=== PATIENT | female | born 2000 | race Caucasian/White ===

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

== ENCOUNTER 2018-01-05 00:49 | Emergency (ER) | payer OTHER ==
--- NOTE | 2018-01-05 01:38 | PDOC ---
History of Present Illness - General Stated Complaint: LT KNEE INJURY Time Seen by Provider: 01/05/18 01:37 History Source: Patient Exam Limitations: No Limitations - History of Present Illness Initial Comments: 01/05/18 01:40 Best Contact:[phone] PCP:0 Pmhx:PCOS Pshx:0 Allergies:NKDA FH:0 Social Hx: Cigarettes/ 0 Alcohol/ 0 Drugs/0 LMP:12/25/2017 20-year-old female presents to the ER complaining of left lateral knee pain. Pain is described as 7/10 dull nonradiating intermittent discomfort. The pain is exacerbated on weight-bear and alleviated at rest. Patient denies extremity numbness or tingling sensation. Patient reports while playing with her dog this evening, she twisted her left knee. Patient states she noticed her left knee popped out laterally and reduced itself when she stood up. Patient denies head/ neck or back injuries. Patient denies any other complaints. Past History - Past Medical History Allergies/Adverse Reactions: Allergies Allergy/AdvReac Type Severity Reaction Status Date / Time No Known Allergies Allergy Verified 05/12/17 11:32 Home Medications: Ambulatory Orders EPINEPHrine (EPI-PEN 0.3MG) [Epipen 0.3MG -] 0.3 mg IM ASDIR #2 pens 05/11/17 Famotidine [Pepcid] 20 mg PO DAILY #7 tablet 05/11/17 Spironolactone 50 mg PO DAILY 05/11/17 Diphenhydramine [Benadryl -] 50 mg PO Q4HWA 05/12/17 Methylprednisolone [Medrol Dose Deep] 4 mg PO ASDIR 05/12/17 Prednisone See Taper PO DAILY #17 tablet 05/12/17 COPD: No Disorders: Yes (PCOS) - Immunization History Immunization Up to Date: Yes - Suicide/Smoking/Psychosocial Hx Smoking History: Unknown if ever smoked Have you smoked in the past 12 months: No Hx Alcohol Use: No Drug/Substance Use Hx: No Substance Use Type: None Review of Systems - Review of Systems Able to Perform ROS?: Yes Comments:: 01/05/18 01:42 CONSTITUTIONAL: Absent: fever, chills, diaphoresis, generalized weakness, malaise, loss of appetite HEENT: Absent: rhinorrhea, nasal congestion, throat pain, throat swelling, difficulty swallowing, mouth swelling, ear pain, eye pain, visual Changes CARDIOVASCULAR: Absent: chest pain, loss of consciousness, palpitations, irregular heart rate, peripheral edema RESPIRATORY: Absent: cough, shortness of breath, dyspnea with exertion, orthopnea, wheezing, stridor, hemoptysis GASTROINTESTINAL: Absent: abdominal pain, abdominal distension, nausea, vomiting, diarrhea, constipation, melena, hematochezia GENITOURINARY: Absent: dysuria, frequency, urgency, hesitancy, hematuria, flank pain, genital pain MUSCULOSKELETAL: +left knee pain Denies ext numbness/tingling sensation Absent: myalgia, arthralgia, joint swelling SKIN: Absent: rash, itching, pallor Is the patient limited [place] proficient: No *Physical Exam - Physical Exam Comments: 01/05/18 01:43 GENERAL: Well developed, well nourished. Awake and alert. No acute distress. MUSCULOSKELETAL Normal range of motion at all joints. No bony deformities or tenderness. No CVA tenderness. EXTREMITIES: No cyanosis. No clubbing. No edema. No calf tenderness. SKIN: Warm and dry. Normal capillary refill. No rashes. No jaundice. Left knee Decreased range of motion due to pain Slight swelling to the anterolateral region No obvious deformity Unable to perform valrus/valgus, anterior or posterior drawer due to pain Left ankle Full range of motion 2+ DP pulse Negative pain on palpation Negative swelling Left hip Full range of motion Negative pain on palpation Negative obvious deformity ED Treatment Course - RADIOLOGY Radiograph Interpretation: 01/05/18 01:45 XR left knee 2n neg *DC/Admit/Observation/Transfer Diagnosis at time of Disposition: Left knee sprain Qualifiers: Encounter type: initial encounter Involved ligament of knee: lateral collateral ligament Qualified Code(s): S83.422A - Sprain of lateral collateral ligament of left knee, initial encounter - Discharge Dispostion Condition at time of disposition: Stable Decision to Admit order: No - Referrals Referrals: Claribel Borrero MD [Primary Care Provider] - Robert Ribera MD [Staff Physician] - - Patient Instructions Printed Discharge Instructions: DI for Knee Sprain Additional Instructions: Ice; 20 mins on alternating with 20 mins off for 48 hours while awake. Rest Elevate Follow up with your orthopedic surgeon or the one listed on the discharge form. Return to the ER for severe/persistent/worsening symptoms, extremity numbness/ tingling sensation. - Post Discharge Activity Progress Note - Progress Note Progress Note: Patient adamantly refuses a urine test. Patient states she had a sleeve gastrectomy done 5 days ago and there is no way she could be .
[2018-01-05 01:44] VITALS: BP 116/84; PULSE 85; TEMP 97.8; BMI 36.2
--- NOTE | 2018-01-05 01:46 | PDOC ---
Medical Decision Making - Medical Decision Making 01/05/18 01:38 Pt seen by Midlevel Provider under my direct supervision I agree with plan as outlined by Midlevel Provider *DC/Admit/Observation/Transfer Diagnosis at time of Disposition: Left knee sprain - Discharge Dispostion Condition at time of disposition: Stable - Referrals Referrals: Robert Ribera MD [Staff Physician] - Claribel Borrero MD [Primary Care Provider] - - Patient Instructions Printed Discharge Instructions: DI for Knee Sprain Additional Instructions: Ice; 20 mins on alternating with 20 mins off for 48 hours while awake. Rest Elevate Follow up with your orthopedic surgeon or the one listed on the discharge form. Return to the ER for severe/persistent/worsening symptoms, extremity numbness/ tingling sensation. - Post Discharge Activity
== END 2018-01-05 03:22 | disposition home or self-care (01) ==
LOC: JER 00:49
DX: S83.422A Sprain of lateral collateral ligament of left knee, initial encounter (principal); X50.1XXA Overexertion from prolonged static or awkward postures, initial encounter; Y93.K9 Activity, other involving animal care; Y92.038 Other place in apartment as the place of occurrence of the external cause; Y99.8 Other external cause status; Z98.890 Other specified postprocedural states
CPT/HCPCS: 73560-TC-LT-FY; 99281-25

== ENCOUNTER 2018-08-30 02:12 | Emergency (ER) | payer OTHER ==
[2018-08-30 02:37] VITALS: TEMP 98.5; BMI 18.8
[2018-08-30] MEDS ORDERED: METHOCARBAMOL 500 MG TABLET PO ONE (03:29)
[2018-08-30] MEDS ORDERED: METHOCARBAMOL 500 MG TABLET ONE (03:35)
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
[2018-08-30] MEDS ORDERED: IBUPROFEN 600 MG TABLET (FP) PO ONE ×2 (04:09→04:25)
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
[2018-08-30 05:45] VITALS: BP 115/73; PULSE 76
== END 2018-08-30 05:45 | disposition home or self-care (01) ==
LOC: JER 02:12
DX: M54.2 Cervicalgia (principal); M43.6 Torticollis; S13.4XXA Sprain of ligaments of cervical spine, initial encounter; V43.52XA Car driver injured in collision with other type car in traffic accident, initial encounter; Y93.89 Activity, other specified; Y92.410 Unspecified street and highway as the place of occurrence of the external cause; E28.2 Polycystic ovarian syndrome
CPT/HCPCS: 72125-TC; 84703; 99282-25

== ENCOUNTER 2019-04-20 19:55 | Emergency (ER) | payer OTHER ==
[2019-04-20 20:02] VITALS: BP 114/73; PULSE 94; TEMP 98.7; BMI 22.6
--- NOTE | 2019-04-20 20:40 | PDOC ---
History of Present Illness - General Chief Complaint: Eye Problem Stated Complaint: SORE THROAT/FEVER/ACHE Time Seen by Provider: 04/20/19 20:05 - History of Present Illness Initial Comments: 04/20/19 20:39 18-year-old female without comorbidities presents for flulike symptoms x6 days. Past History - Past Medical History Allergies/Adverse Reactions: Allergies Allergy/AdvReac Type Severity Reaction Status Date / Time No Known Allergies Allergy Verified 04/20/19 19:58 Home Medications: Ambulatory Orders EPINEPHrine (EPI-PEN 0.3MG) [Epipen 0.3MG -] 0.3 mg IM ASDIR #2 pens 05/11/17 Famotidine [Pepcid] 20 mg PO DAILY #7 tablet 05/11/17 Spironolactone 50 mg PO DAILY 05/11/17 Diphenhydramine [Benadryl -] 50 mg PO Q4HWA 05/12/17 Methylprednisolone [Medrol Dose Deep] 4 mg PO ASDIR 05/12/17 Prednisone See Taper PO DAILY #17 tablet 05/12/17 Methocarbamol [Robaxin -] 500 mg PO BID PRN #8 tablet 08/30/18 COPD: No Disorders: Yes (PCOS) - Immunization History Immunization Up to Date: Yes - Psycho Social/Smoking Cessation Hx Smoking History: Never smoked Have you smoked in the past 12 months: No Hx Alcohol Use: Yes Drug/Substance Use Hx: No Substance Use Type: None Review of Systems - Review of Systems Constitutional: Yes: Chills, Diaphoresis, Fever, Malaise, Night Sweats HEENTM: Yes: Tearing, Nose Congestion, Throat Pain Respiratory: Yes: Cough *Physical Exam - Vital Signs Last Vital Signs Temp Pulse Resp BP Pulse Ox 98.7 F 94 H 18 114/73 100 04/20/19 19:56 04/20/19 19:56 04/20/19 19:56 04/20/19 19:56 04/20/19 19:56 - Physical Exam 04/20/19 20:39 GENERAL: The patient is awake, alert, and fully oriented, in no acute distress. HEAD: Normal with no signs of trauma. EYES: sclera anicteric, conjunctiva injected on the right normal on the left ENT: Ears normal tympanic membranes normal oropharynx clear uvula midline NECK: Normal range of motion LUNGS: Breath sounds equal, clear to auscultation bilaterally. No wheezes, and no crackles. HEART: S1 and S2 without murmur, rub or gallop. ABDOMEN: Soft, nontender, normoactive bowel sounds. No guarding, no rebound. No masses. EXTREMITIES: Normal range of motion, no edema. No clubbing or cyanosis. No cords, erythema, or tenderness. NEUROLOGICAL: Cranial nerves II through XII grossly intact. PSYCH: Normal mood, normal affect. SKIN: Warm, Dry, normal turgor, no rashes or lesions noted. Medical Decision Making - Medical Decision Making 04/20/19 20:40 Supportive care for viral upper respiratory infection out of the window for Tamiflu Discharge - Discharge Information Problems reviewed: Yes Clinical Impression/Diagnosis: Upper respiratory infection Condition: Stable Disposition: HOME - Admission No - Follow up/Referral Referrals: Maria A Oseguera MD [Staff Physician] - - Patient Discharge Instructions Additional Instructions: Continue with Mucinex Tylenol and Motrin as directed. Return to the emergency room for worsening symptoms. Without fail follow-up with your primary care physician in 2 to 3 days for further evaluation and treatment options. - Post Discharge Activity
== END 2019-04-20 21:00 | disposition home or self-care (01) ==
LOC: JERFT 19:55
DX: J06.9 Acute upper respiratory infection, unspecified (principal); B97.89 Other viral agents as the cause of diseases classified elsewhere
CPT/HCPCS: 99282-25

== ENCOUNTER 2022-01-20 22:05 | Emergency (ER) | payer OTHER ==
[2022-01-20 22:15] VITALS: BP 124/86; PULSE 116; RESP 20; BMI 24.5
[2022-01-20] MEDS ORDERED: ALBUTEROL SO4 HFA INHALER IH ONE ×2 (22:21→22:25)
[2022-01-20] MEDS ORDERED: predniSONE 20 MG TABLET (UD) PO ONE (22:22)
[2022-01-20] MEDS ORDERED: SODIUM CHLORIDE 1,000 ML IV ONE ×2 (22:24→22:25)
[2022-01-20] MEDS ORDERED: ACETAMINOPHEN INJECTION 100 ML IVPB ONE (22:25)
[2022-01-20] MEDS ORDERED: predniSONE 20 MG TABLET (UD) ONE (22:25)
[2022-01-20] MEDS ORDERED: ACETAMINOPHEN 1000 MG/100 ML BAG IVPB ONE (22:25)
[2022-01-20 23:20] VITALS: TEMP 101
== END 2022-01-20 23:32 | disposition home or self-care (01) ==
LOC: FER 22:05
PROC: 3E0333Z Introduction of Anti-inflammatory into Peripheral Vein, Percutaneous Approach (ICD-10-PCS; principal; 2022-01-20)
PROC: 3E0337Z Introduction of Electrolytic and Water Balance Substance into Peripheral Vein, Percutaneous Approach (ICD-10-PCS; 2022-01-20)
DX: J09.X2 Influenza due to identified novel influenza A virus with other respiratory manifestations (principal); E86.0 Dehydration; J02.9 Acute pharyngitis, unspecified
CPT/HCPCS: 0241U-QW; 99284-25